=== PATIENT | female | born 1970 | race Caucasian/White ===

== ENCOUNTER 2017-08-14 22:29 | Emergency (ER) | payer SELFPAY ==
[~2017-08-14] VITALS: Ht 165.1 cm; Wt 79.7 kg
[2017-08-14 22:35] VITALS: Ht 165.1 cm; Wt 79.7 kg
[2017-08-15] MEDS ORDERED: CYCL-319 PO (00:57)
[2017-08-15] MEDS ORDERED: IBUP-1542 PO (00:57)
--- NOTE | 2017-08-17 01:40 | ERD ---
ER Documentation Chief Complaint Chief Complaint pain/swelling right knee x 1 month, getting worse. denies injury HPI Patient is a 46-year-old female presenting to the emergency department with complaints of right knee swelling intermittently for 1 month. She denies trauma. Symptoms are worsening. She did dance for approximately 5 episodes yesterday and she may have aggravated her symptoms. She is taking no medication for relief of symptoms currently. She denies other symptoms. ROS All systems reviewed and are negative except as per history of present illness. Medications Home Meds Active Scripts Ibuprofen* (Motrin*) 600 Mg Tab, 600 MG PO Q6, #30 TAB Prov:CINDY VELIZ PA-C 08/15/17 Cyclobenzaprine Hcl* (Cyclobenzaprine Hcl*) 10 Mg Tablet, 10 MG PO TID, #15 TAB Prov:CINDY VELIZ PA-C 08/15/17 Allergies Allergies: Coded Allergies: No Known Drug Allergies (Verified Allergy, Unknown, 08/14/17) Physical Exam Vitals Vital Signs Date Time Temp Pulse Resp B/P Pulse Ox O2 Delivery O2 Flow Rate FiO2 08/14/17 22:35 98.0 77 20 134/79 97 Physical Exam Const: Nontoxic, well-appearing female in no acute distress. Head: Atraumatic Eyes: Normal Conjunctiva ENT: Normal External Ears, Nose and Mouth. Ext: Tenderness palpation noted over the right anterior joint line of the right knee. No ecchymosis or obvious deformity. Mild swelling noted about the joint. Neur: Awake and alert Psych: Normal Mood and Affect Procedures/MDM 46-year-old female presenting to the emergency department with complaints of right knee pain. This is been ongoing for 1 month intermittently. I had a discussion with the patient, and she did not want x-rays at this time. I did, however give her prescriptions for pain and swelling management. She was advised that x-rays were indicated, however she declined them. Low suspicion for septic joint or other emergent conditions. Patient is to have close primary care follow-up. Strict ER return precautions were discussed and patient understood. Departure Diagnosis: Primary Impression: Knee pain Chronicity: acute Laterality: right Qualified Code: M25.561 - Acute pain of right knee Condition: Fair Patient Instructions: Knee Pain, Uncertain Cause Referrals: COMMUNITY CLINICS YOU HAVE RECEIVED A MEDICAL SCREENING EXAM AND THE RESULTS INDICATE THAT YOU DO NOT HAVE A CONDITION THAT REQUIRES URGENT TREATMENT IN THE EMERGENCY DEPARTMENT. FURTHER EVALUATION AND TREATMENT OF YOUR CONDITION CAN WAIT UNTIL YOU ARE SEEN IN YOUR DOCTORS OFFICE WITHIN THE NEXT 1-2 DAYS. IT IS YOUR RESPONSIBILITY TO MAKE AN APPOINTMENT FOR FOLOW-UP CARE. IF YOU HAVE A PRIMARY DOCTOR --you should call your primary doctor and schedule an appointment IF YOU DO NOT HAVE A PRIMARY DOCTOR YOU CAN CALL OUR PHYSICIAN REFERRAL HOTLINE AT IF YOU CAN NOT AFFORD TO SEE A PHYSICIAN YOU CAN CHOSE FROM THE FOLLOWING [facility] CL[facility]ICS [facility] [address] [facility] [address] [facility]. [facility] [address] [facility] [address] [facility] [address] [facility]. [facility]. [address] Additional Instructions: Follow up with your PCP within the next 1-3 days for a repeat evaluation. If you require a referral to a specialist, your Primary Care Provider may be able to provide this for you. In most patient cases, a referral is not required. If you have further questions regarding this matter, please ask your Primary Care Provider. Return the the emergency department immediately if symptoms worsen or change. If you have any questions regarding medications, ask your pharmacist or us before you leave. If any adverse reactions, occur while taking your medications, discontinue the treatment and return to the emergency department immediately. If any new or worsening symptoms, uncontrolled fevers, or other unexplained symptoms occur, return to the emergency department immediately. Take your medications as directed, and complete the entire course of treatment. CINDY VELIZ PA-C Aug 17, 2017 01:40
--- NOTE | 2017-08-17 01:40 | ERD ---
ER Documentation Chief Complaint Chief Complaint pain/swelling right knee x 1 month, getting worse. denies injury HPI Patient is a 46-year-old female presenting to the emergency department with complaints of right knee swelling intermittently for 1 month. She denies trauma. Symptoms are worsening. She did dance for approximately 5 episodes yesterday and she may have aggravated her symptoms. She is taking no medication for relief of symptoms currently. She denies other symptoms. ROS All systems reviewed and are negative except as per history of present illness. Medications Home Meds Active Scripts Ibuprofen* (Motrin*) 600 Mg Tab, 600 MG PO Q6, #30 TAB Prov:CINDY VELIZ PA-C 08/15/17 Cyclobenzaprine Hcl* (Cyclobenzaprine Hcl*) 10 Mg Tablet, 10 MG PO TID, #15 TAB Prov:CINDY VELIZ PA-C 08/15/17 Allergies Allergies: Coded Allergies: No Known Drug Allergies (Verified Allergy, Unknown, 08/14/17) Physical Exam Vitals Vital Signs Date Time Temp Pulse Resp B/P Pulse Ox O2 Delivery O2 Flow Rate FiO2 08/14/17 22:35 98.0 77 20 134/79 97 Physical Exam Const: Nontoxic, well-appearing female in no acute distress. Head: Atraumatic Eyes: Normal Conjunctiva ENT: Normal External Ears, Nose and Mouth. Ext: Tenderness palpation noted over the right anterior joint line of the right knee. No ecchymosis or obvious deformity. Mild swelling noted about the joint. Neur: Awake and alert Psych: Normal Mood and Affect Procedures/MDM 46-year-old female presenting to the emergency department with complaints of right knee pain. This is been ongoing for 1 month intermittently. I had a discussion with the patient, and she did not want x-rays at this time. I did, however give her prescriptions for pain and swelling management. She was advised that x-rays were indicated, however she declined them. Low suspicion for septic joint or other emergent conditions. Patient is to have close primary care follow-up. Strict ER return precautions were discussed and patient understood. Departure Diagnosis: Primary Impression: Knee pain Chronicity: acute Laterality: right Qualified Code: M25.561 - Acute pain of right knee Condition: Fair Patient Instructions: Knee Pain, Uncertain Cause Referrals: COMMUNITY CLINICS YOU HAVE RECEIVED A MEDICAL SCREENING EXAM AND THE RESULTS INDICATE THAT YOU DO NOT HAVE A CONDITION THAT REQUIRES URGENT TREATMENT IN THE EMERGENCY DEPARTMENT. FURTHER EVALUATION AND TREATMENT OF YOUR CONDITION CAN WAIT UNTIL YOU ARE SEEN IN YOUR DOCTORS OFFICE WITHIN THE NEXT 1-2 DAYS. IT IS YOUR RESPONSIBILITY TO MAKE AN APPOINTMENT FOR FOLOW-UP CARE. IF YOU HAVE A PRIMARY DOCTOR --you should call your primary doctor and schedule an appointment IF YOU DO NOT HAVE A PRIMARY DOCTOR YOU CAN CALL OUR PHYSICIAN REFERRAL HOTLINE AT IF YOU CAN NOT AFFORD TO SEE A PHYSICIAN YOU CAN CHOSE FROM THE FOLLOWING [facility] CLINICS [facility] [address] [facility] [address] [facility]. [email or web address] [address] [facility] [address] [facility] [address] [facility]. [facility]. [address] Additional Instructions: Follow up with your PCP within the next 1-3 days for a repeat evaluation. If you require a referral to a specialist, your Primary Care Provider may be able to provide this for you. In most patient cases, a referral is not required. If you have further questions regarding this matter, please ask your Primary Care Provider. Return the the emergency department immediately if symptoms worsen or change. If you have any questions regarding medications, ask your pharmacist or us before you leave. If any adverse reactions, occur while taking your medications, discontinue the treatment and return to the emergency department immediately. If any new or worsening symptoms, uncontrolled fevers, or other unexplained symptoms occur, return to the emergency department immediately. Take your medications as directed, and complete the entire course of treatment. CINDY VELIZ PA-C Aug 17, 2017 01:40
--- NOTE | 2017-08-17 01:40 | ERD ---
ER Documentation Chief Complaint Chief Complaint pain/swelling right knee x 1 month, getting worse. denies injury HPI Patient is a 46-year-old female presenting to the emergency department with complaints of right knee swelling intermittently for 1 month. She denies trauma. Symptoms are worsening. She did dance for approximately 5 episodes yesterday and she may have aggravated her symptoms. She is taking no medication for relief of symptoms currently. She denies other symptoms. ROS All systems reviewed and are negative except as per history of present illness. Medications Home Meds Active Scripts Ibuprofen* (Motrin*) 600 Mg Tab, 600 MG PO Q6, #30 TAB Prov:CINDY VELIZ PA-C 08/15/17 Cyclobenzaprine Hcl* (Cyclobenzaprine Hcl*) 10 Mg Tablet, 10 MG PO TID, #15 TAB Prov:CINDY VELIZ PA-C 08/15/17 Allergies Allergies: Coded Allergies: No Known Drug Allergies (Verified Allergy, Unknown, 08/14/17) Physical Exam Vitals Vital Signs Date Time Temp Pulse Resp B/P Pulse Ox O2 Delivery O2 Flow Rate FiO2 08/14/17 22:35 98.0 77 20 134/79 97 Physical Exam Const: Nontoxic, well-appearing female in no acute distress. Head: Atraumatic Eyes: Normal Conjunctiva ENT: Normal External Ears, Nose and Mouth. Ext: Tenderness palpation noted over the right anterior joint line of the right knee. No ecchymosis or obvious deformity. Mild swelling noted about the joint. Neur: Awake and alert Psych: Normal Mood and Affect Procedures/MDM 46-year-old female presenting to the emergency department with complaints of right knee pain. This is been ongoing for 1 month intermittently. I had a discussion with the patient, and she did not want x-rays at this time. I did, however give her prescriptions for pain and swelling management. She was advised that x-rays were indicated, however she declined them. Low suspicion for septic joint or other emergent conditions. Patient is to have close primary care follow-up. Strict ER return precautions were discussed and patient understood. Departure Diagnosis: Primary Impression: Knee pain Chronicity: acute Laterality: right Qualified Code: M25.561 - Acute pain of right knee Condition: Fair Patient Instructions: Knee Pain, Uncertain Cause Referrals: COMMUNITY CLINICS YOU HAVE RECEIVED A MEDICAL SCREENING EXAM AND THE RESULTS INDICATE THAT YOU DO NOT HAVE A CONDITION THAT REQUIRES URGENT TREATMENT IN THE EMERGENCY DEPARTMENT. FURTHER EVALUATION AND TREATMENT OF YOUR CONDITION CAN WAIT UNTIL YOU ARE SEEN IN YOUR DOCTORS OFFICE WITHIN THE NEXT 1-2 DAYS. IT IS YOUR RESPONSIBILITY TO MAKE AN APPOINTMENT FOR FOLOW-UP CARE. IF YOU HAVE A PRIMARY DOCTOR --you should call your primary doctor and schedule an appointment IF YOU DO NOT HAVE A PRIMARY DOCTOR YOU CAN CALL OUR PHYSICIAN REFERRAL HOTLINE AT IF YOU CAN NOT AFFORD TO SEE A PHYSICIAN YOU CAN CHOSE FROM THE FOLLOWING [facility] CLINICS [facility] [address] [facility] [address] [facility]. [facility] [address] [facility] [address] [facility] [address] [facility]. [facility]. [address] Additional Instructions: Follow up with your PCP within the next 1-3 days for a repeat evaluation. If you require a referral to a specialist, your Primary Care Provider may be able to provide this for you. In most patient cases, a referral is not required. If you have further questions regarding this matter, please ask your Primary Care Provider. Return the the emergency department immediately if symptoms worsen or change. If you have any questions regarding medications, ask your pharmacist or us before you leave. If any adverse reactions, occur while taking your medications, discontinue the treatment and return to the emergency department immediately. If any new or worsening symptoms, uncontrolled fevers, or other unexplained symptoms occur, return to the emergency department immediately. Take your medications as directed, and complete the entire course of treatment. CINDY VELIZ PA-C Aug 17, 2017 01:40
== END 2017-08-15 01:17 | disposition home or self-care (01) ==
LOC: FTE 22:29
DX: M25.561 Pain in right knee (principal)
CPT/HCPCS: 99283

== ENCOUNTER → 2019-05-20 | Emergency (ER) | payer BC ==
[~2019-05-20] VITALS: Ht 165.1 cm; Wt 82.9 kg
[~2019-05-20] MED LIST: CYCL10TA7 PO; HYDR-4011 PO; IBUP-1542 PO; IBUPROFEN 600 MG TAB PO ONE; ONDANSETRON (ODT) 4 MG TAB ODT STA; morphine LIQ (10 MG/5 ML) CUP PO ONE
[2019-05-20 16:10] VITALS: BP 139/77; PULSE 70; RESP 20; Ht 165.1 cm; Wt 82.9 kg
--- NOTE | 2019-05-20 16:38 | ERD ---
ER Documentation Chief Complaint Chief Complaint pt reports slip and fall in shower, c/o r wrist pain HPI 48-year-old female, right-handed, presents the emergency department, complaining of right wrist pain after sustaining a mechanical ground-level fall while the patient was taking a shower 40 minutes prior to arrival. The pain is dull, constant, 9/10. The patient denies head trauma, no loss of consciousness, no distal weakness, numbness or tingling. ROS All systems reviewed and are negative except as per history of present illness. Medications Home Meds Active Scripts Ibuprofen* (Motrin*) 600 Mg Tab, 600 MG PO Q6H PRN for PAIN AND OR ELEVATED TEMP, #30 TAB Prov:JACKIE CERON MD 05/20/19 Hydrocodone/Acetaminophen ([place] 5-325 Tablet) 1 Each Tablet, 1 TAB PO TID PRN for PAIN, #20 TAB Prov:JACKIE CERON MD 05/20/19 Ibuprofen* (Motrin*) 600 Mg Tab, 600 MG PO Q6, #30 TAB Prov:CINDY VELIZ PA-C 08/15/17 Cyclobenzaprine Hcl* (Cyclobenzaprine Hcl*) 10 Mg Tablet, 10 MG PO TID, #15 TAB Prov:CINDY VELIZ PA-C 08/15/17 Allergies Allergies: Coded Allergies: No Known Drug Allergies (Verified Allergy, Unknown, 08/14/17) PMhx/Soc Medical and Surgical Hx: pt denies Medical Hx, pt denies Surgical Hx Hx Alcohol Use: No Hx Substance Use: No Hx Tobacco Use: No Smoking Status: Never smoker FmHx Family History: No diabetes, No coronary disease Physical Exam Vitals Vital Signs Date Temp Pulse Resp B/P (MAP) Pulse Ox O2 O2 Flow FiO2 Time Delivery Rate 05/20/19 99.1 70 20 139/77 100 16:10 (97) Physical Exam Const: No acute distress Head: Atraumatic Eyes: Normal Conjunctiva ENT: Normal External Ears, Nose and Mouth. Neck: Full range of motion. No meningismus. Resp: Clear to auscultation bilaterally Cardio: Regular rate and rhythm, no murmurs Abd: Soft, non tender, non distended. Normal bowel sounds Skin: No petechiae or rashes Back: No midline or flank tenderness Ext: Right upper extremity: Significant edema of the wrist with tenderness to palpation and decreased range of motion. Distally, no cyanosis, or edema Neur: Awake and alert Psych: Normal Mood and Affect Results 24 hrs Current Medications Medications Dose Sig/Guilherme Start Time Status Last (Trade) Ordered Route PRN Stop Time Admin Dose Reason Admin Morphine 10 mg ONCE ONCE 05/20/19 DC 05/20/19 Sulfate PO 17:00 16:48 (morphine) 05/20/19 17:01 Ondansetron 4 mg ONCE STAT 05/20/19 DC 05/20/19 HCl (Zofran ODT 16:33 16:47 Odt) 05/20/19 16:44 Ibuprofen 600 mg ONCE ONCE 05/20/19 DC 05/20/19 (Motrin) PO 17:00 16:47 05/20/19 17:01 Patient: ALOK MOISE : 1970 Age: 48 Sex: F MR #: [id number] DOS: 05/20/19 1633 Ordering MD: JACKIE CERON MD Location: [facility] Room/Bed: PROCEDURE: XR Forearm. CLINICAL INDICATION: Trauma TECHNIQUE: AP and lateral views of the right forearm were obtained. COMPARISON: No prior studies are available for comparison. FINDINGS: There is soft tissue swelling surrounding the wrist. The joint spaces are intact with anatomic alignment. Noted is a comminuted impacted fracture of the distal metaphysis of the radius with intra-articular extension. There is dorsal angulation of the distal fracture fragment. Nondisplaced ulnar styloid fracture is seen. IMPRESSION: Impacted comminuted Colles fracture right wrist with intra-articular extension and dorsal angulation. Procedures/MDM Differential diagnosis considered include but not limited are: sprain/strain, ligament injury, fracture, dislocation, low suspicion for acute infectious process. Soft compartments, neurovascular exam grossly intact. Physical examination and clinical presentation consistent with right radial and ulnar fracture. During the ED course the patient received treatment with right sugar tong splint presenting overall improvement of the symptoms. Splint evaluation: Type: Sugar tong Location: Right upper extremity Position: good alignment in anatomical position Neurovascular intact Results and clinical impression discussed with patient who agrees with management. The patient is stable to be treated outpatient and will be discharged home with recommendations for Ortho evaluation KIT, meanwhile, ice, rest and partial immobilization. NSAIDs 3 times daily for 5 days and close monitoring. The patient was instructed to follow up with the primary care provider in the next 48h. If symptoms persist, worsen or new symptoms develop, then patient should return to the ED immediately. Instructions explained and given to patient with acknowledgment and demonstrated understanding. Disclaimer: Inadvertent spelling and grammatical errors are likely due to EHR/dictation software use and do not reflect on the overall quality of patient care. Also, please note that the electronic time recorded on this note does not necessarily reflect the actual time of the patient encounter. Departure Diagnosis: Primary Impression: Fracture of right radius and ulna Condition: Stable Additional Instructions: Thank you very much for allowing us to participate in your care. Your health and safety is our top priority at [facility]. The evaluation in the emergency department has been done to rule out an acute emergency. Chronic, [id number] conditions may have not been evaluated; therefore, you need to follow up with a primary care provider in the next 48h. If symptoms persist, worsen or new symptoms develop, then patient should return to the ED immediately. Call your primary care doctor TOMORROW for an appointment during the next 2-4 days and bring all the information provided. Have prescriptions filled and follow precisely the directions on the label. If the symptoms get worse and your provider is unavailable, return to the Emergency Department immediately. JACKIE CERON MD May 20, 2019 16:38
== END | disposition home or self-care (01) ==
LOC: FTE 16:00
DX: S52.531A Colles' fracture of right radius, initial encounter for closed fracture (principal); W18.2XXA Fall in (into) shower or empty bathtub, initial encounter; Y92.9 Unspecified place or not applicable